=== PATIENT | male | born 1930 | race Caucasian/White ===

== ENCOUNTER 2018-03-21 23:33 | Emergency (ER) | payer MEDICARE ==
[~2018-03-21 23:33] MED LIST: ASPI1TAB69 PO; DONE10TA7 PO; EZET10 PO; IPRAAER INH; MULT400T PO; NITR1SUB3 SL; SIMV80TA PO; VITD400 PO
[2018-03-21] MEDS ORDERED: EPINEPHrine HCL (1:10,000) 1 MG/10 ML SYRINGE IV ONE (23:34)
[2018-03-21] MEDS ORDERED: CALCIUM CHLORIDE 10% SOLN 1 GRAM/10 ML SYR IV ONE (23:34)
[2018-03-21] MEDS ORDERED: LIDOCAINE/D5W 2000 MG/500 ML 500 ML IV ONE (23:34)
[2018-03-21] MEDS ORDERED: SODIUM BICARBONATE 8.4% INJ 50 MEQ/50 ML SYR IV ONE (23:34)
[2018-03-22] MEDS ORDERED: NITR0.4D T-DERMAL
[2018-03-22] MEDS ORDERED: ASPI-516 CHEW
[2018-03-22] MEDS ORDERED: RANE1000 PO
[2018-03-22] MEDS ORDERED: BRIL90TA PO
--- NOTE | 2018-03-22 00:06 | PD ---
HPI . Cardiac arrest Chief Complaint: Code Blue Time Seen by Provider: 23:47 Travel History International Travel<30 days: No Contact w/Intl Traveler<30days: No Traveled to known affect area: No History of Present Illness HPI Patient found down in the residential last seen normal at 10:00 when he went to sleep apparently around 1130 they found him unresponsive began CPR for 20 minutes then paramedics arrived to find the patient pulseless apneic no signs of spontaneous respirations no cardiac activity they put a Combitube and gave him 2 epi's and brought him to the ER CPR in process patient is unable to provide HPI or ROS due to the fact he is in extreme clinical condition cardiac arrest unconscious unresponsive he has not been sedated and he has no mentation no respiratory effort no cardiac activity CPR continues. Patient had recently had stents placed and he was sent home he had a syncopal event he went home and was put in the residential tonight and today he was found in the bed.. Pt recently had a HI nad stents and had recent fall after cardiac cath when he arrived home , then failure to thrive and deteriorating placed in [facility] rehab yesterday , found unresponsive without vitals tonight around 1030 pm , EMS was unable to get return of cardiac activity nor pulse with ET tube and EPI Amp x2 arrives Possible DOA Pupils fixed and dilated no gag intubation re-intubated to remove combi tube pt had no response to intubation , US cardiac bedside POC no cardiac activity PFSH Social History Tobacco Use: No Allergies-Medications (Allergen,Severity, Reaction): Coded Allergies: diclofenac (Verified Allergy, Severe, Nausea and Vomiting, 03/21/18) etodolac (Verified Allergy, Severe, Nausea and Vomiting, 03/21/18) flurbiprofen (Verified Allergy, Severe, Nausea and Vomiting, 03/21/18) ibuprofen (Verified Allergy, Severe, Nausea and Vomiting, 03/21/18) indomethacin (Verified Allergy, Severe, Nausea and Vomiting, 03/21/18) ketoprofen (Verified Allergy, Severe, Nausea and Vomiting, 03/21/18) ketorolac (Verified Allergy, Severe, Nausea and Vomiting, 03/21/18) naproxen (Verified Allergy, Severe, Nausea and Vomiting, 03/21/18) oxaprozin (Verified Allergy, Severe, Nausea and Vomiting, 03/21/18) erythromycin base (Verified Allergy, Unknown, 03/21/18) Reported Meds & Prescriptions Reported Meds & Active Scripts Active Reported Ranexa ER 12 HR (Ranolazine) 1,000 Mg Tab 1,000 Mg PO BID Brilinta (Ticagrelor) 90 Mg Tab 90 Mg PO BID Nitro-Dur Patch 24 HR (Nitroglycerin) 0.4 Mg/Hr Patch 0.4 Mg T-DERMAL DAILY PRN Aspirin 81 Mg Chew 81 Mg CHEW DAILY Multaq (Dronedarone) 400 Mg Tab 400 Mg PO BID Nitroglycerin SL (Nitroglycerin) 0.4 Mg Subl 0.4 Mg SL DIRECTED PRN ONE TABLET UNDER THE TONGUE NEEDED FOR CHEST PAIN, MAY REPEAT EVERY FIVE MINUTES FOR A TOTAL OF 3 DOSES OR CALL 911 IF NO RELIEF Simvastatin 80 Mg Tab 80 Mg PO DAILY Zetia (Ezetimibe) 10 Mg Tab 10 Mg PO DAILY Vitamin D3 (Cholecalciferol) 400 Unit Tab 400 Units PO DAILY Donepezil 10 Mg Tab 10 Mg PO HS Combivent Respimat Inh (Ipratropium-Albuterol Inh) 20-100 Residential/Act Aero 1 Puff INH QID Review of Systems ROS Limitations: Unresponsive Physical Exam Narrative GENERAL: Patient has no signs of vitals he has no pulse he has no respiratory effort ,, unconscious obtunded with dilated pupils SKIN: Pale and mottled HEAD: Atraumatic. Normocephalic. EYES: Pupils fixed and dilated bilateral ENT: No nasal bleeding or discharge. Mucous membranes pink and moist. NECK: Trachea midline. No JVD. CARDIOVASCULAR: Cardiac standstill ultrasound shows no cardiac activity no pulses RESPIRATORY: No respiratory effort GASTROINTESTINAL: Abdomen soft, non-tender, nondistended. Hepatic and splenic margins not palpable. MUSCULOSKELETAL: Extremities are cool and mottled NEUROLOGICAL: Complete unconscious obtunded unresponsive Data Data Last Documented VS Vital Signs Date Time Temp Pulse Resp B/P (MAP) Pulse Ox O2 Delivery O2 Flow Rate FiO2 03/21/18 23:44 15.00 100 MDM Medical Decision Making Medical Screen Exam Complete: Yes Emergency Medical Condition: Yes Differential Diagnosis Cardiac arrest due to respiratory arrest due versus cardiac arrest due to cardiac ischemia due to infarct or due to hypothermia versus due to hypoglycemia versus due to hypokalemia due to hypocalcemia other Narrative Course Patient has been unknown downtime found in his bed unconscious unresponsive he is somewhat mottled no return of spontaneous cardiac activity in route with paramedics intubating as well as epi 2 in the ER I have given him 3 bicarb amps to epi amps calcium chloride rate intubated the patient CPR continued patient is oxygenated CPR continues he has no cardiac activity ultrasound shows cardiac standstill on the color television console monitor still asystole complete patient is pronounced at 2342 patient is pronounced cardiac code resuscitation effort is called off. 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 Rapid sequence intubation was initiated by me The patient was intubated with a [8.0-] cuffed endotracheal tube. Tube placement was confirmed by visualization of the tube and balloon passing through the cords, capnometry a Breath sounds were equal and well aerated bilaterally postintubation. No breath sounds over stomach. Patient tolerated procedure well. pt did not need sedation as he was unresponsive and no gag, POC ECHO bedside curing CPR no cardiac activity Diagnosis Primary Impression: Cardiac arrest Disposition: 20 Russ Gonzalez MD March 22, 2018 00:06
== END 2018-03-22 03:13 | disposition expired ==
LOC: NEPE 23:33
DX: I46.9 Cardiac arrest, cause unspecified (principal)
CPT/HCPCS: 31500; 92950; 99291; J0171; J2001